=== PATIENT | female | born 1990 | race Caucasian/White ===

== ENCOUNTER 2018-09-24 11:02 | Emergency (ER) | payer OTHER ==
[2018-09-24 11:56] VITALS: BP 143/85
--- NOTE | 2018-09-24 12:16 | UC ---
Skin Complaint HPI - HPI Summary HPI Summary: Patient is 2 weeks . Patient developed what she thinks was a bite on her left forearm. Patient states over the last 2 days is gotten bigger and more red. Patient is a skilled nursing concern for cellulitis. 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 Patient's tetanus is up-to-date. Patient denies fevers or chills. No joint pain. No other injuries. Patient is right-hand dominant. Patient's medications reviewed this visit. Of note, patient is breast-feeding. - History of Current Complaint Chief Complaint: UCSkin Time Seen by Provider: 09/24/18 12:02 Stated Complaint: SPIDER BITE LT ARM Hx Obtained From: Patient Hx Last Menstrual Period: prior to childbirth. Pain Intensity: 7 - Allergy/Home Medications Allergies/Adverse Reactions: Allergies Allergy/AdvReac Type Severity Reaction Status Date / Time cephalexin [From Keflex] Allergy See Comment Verified 09/24/18 11:49 Home Medications: Home Medications Ibuprofen TAB* [Advil TAB*] 800 mg PO Q6H PRN 09/24/18 [History Confirmed ] Labetalol TAB* [Trandate TAB*] 200 mg PO BID 09/24/18 [History Confirmed ] Review of Systems All Other Systems Reviewed And Are Negative: Yes Constitutional: Positive: Negative Skin: Positive: Other Is Patient Immunocompromised?: No PMH/Surg Hx/FS Hx/Imm Hx Previously Healthy: Yes - Surgical History Surgical History: Yes Surgery Procedure, Year, and Place: R ovary torsion. cuauhtemoc - Family History Known Family History: Positive: Non-Contributory - Social History Occupation: Unemployed Lives: With Family Alcohol Use: None Substance Use Type: None Smoking Status (MU): Never Smoked Tobacco Physical Exam - Summary Physical Exam Summary: Vital Signs Reviewed: Yes A+Ox3, no distress Eyes: Conjunctiva Clear ENT: Hearing grossly normal neck: supple Respiratory: Positive: No respiratory distress, No accessory muscle use Cardiovascular: skin color reflect adequate perfusion Musculoskeletal Exam: CORNELL x 4 without difficulty Neurological: Positive: Alert, ambulatory without difficulty Psychological: Positive: Normal Response To Family Skin: Positive: left forearm pt with 1x2 cm area of raised firm erythema. no fluctuance. no induration. Surrounding pale erythema 3x4cm no open wound,no drainage Triage Information Reviewed: Yes Vital Signs: Initial Vital Signs Temp 98 F 09/24/18 11:50 Pulse 72 09/24/18 11:50 Resp 15 09/24/18 11:50 BP 143/85 09/24/18 11:50 Pulse Ox 100 09/24/18 11:50 Course/Dx - Course Course Of Treatment: Pt with an area of erythema left medial forearm with central area of firmenss, no notedflcutuance no drainage no crepitus. Pt declined I+D today. recommend warm soaking, demarcated. spoke with PCC regarding MRSA abx - given recommendations will use clinda. pt to breast feed immediately before med. reviewed with pt s/s worsening infection. splint for comfort and support. pt comfortable and in agreement with plan. BP mildly elevated- pt without sx - f.uy with PCP - Diagnoses Provider Diagnoses: cellulitis Discharge - Sign-Out/Discharge Documenting (check all that apply): Patient Departure All imaging exams completed and their final reports reviewed: No Studies - Discharge Plan Condition: Stable Disposition: HOME Prescriptions: Clindamycin Cap(NF) [Clindamycin Cap 300 mg Cap(NF)] 300 mg PO TID #21 cap Patient Education Materials: Cellulitis (ED) Referrals: No Primary Care Phys,NOPCP [Primary Care Provider] - Additional Instructions: Apply warm, epsom salt soaks to your wound, 3 times a day, 15 minutes per time wear wrist immobilizer for comfort and support monitor your wound closely for signs of worsening infection - increased reddness , red streaking, pain, drainage. As discussed today, you may need your wound opened and drained if your symptoms don't rapidly improved As discussed, it is recommended you breast feed immediately before taking the antibiotic If you have any questions or concerns you should return here or go to the emergency department for further evaluation and treatment - Billing Disposition and Condition Condition: STABLE Disposition: Home
--- NOTE | 2018-09-24 12:21 | UC ---
Skin Complaint HPI - History of Current Complaint Chief Complaint: UCSkin Time Seen by Provider: 09/24/18 12:02 Stated Complaint: SPIDER BITE LT ARM Hx Last Menstrual Period: prior to childbirth. Pain Intensity: 7 - Allergy/Home Medications Allergies/Adverse Reactions: Allergies Allergy/AdvReac Type Severity Reaction Status Date / Time cephalexin [From Keflex] Allergy See Comment Verified 09/24/18 11:49 Home Medications: Home Medications Ibuprofen TAB* [Advil TAB*] 800 mg PO Q6H PRN 09/24/18 [History Confirmed ] Labetalol TAB* [Trandate TAB*] 200 mg PO BID 09/24/18 [History Confirmed ] PMH/Surg Hx/FS Hx/Imm Hx - Surgical History Surgical History: Yes Surgery Procedure, Year, and Place: R ovary torsion. cuauhtemoc - Social History Alcohol Use: None Substance Use Type: None Smoking Status (MU): Never Smoked Tobacco Physical Exam Vital Signs: Initial Vital Signs Temp 98 F 09/24/18 11:50 Pulse 72 09/24/18 11:50 Resp 15 09/24/18 11:50 BP 143/85 09/24/18 11:50 Pulse Ox 100 09/24/18 11:50 Discharge - Discharge Plan Condition: Stable Disposition: HOME Patient Education Materials: Cellulitis (ED) Referrals: No Primary Care Phys,NOPCP [Primary Care Provider] - Additional Instructions: Apply warm, epsom salt soaks to your wound, 3 times a day, 15 minutes per time wear wrist immobilizer for comfort and support monitor your wound closely for signs of worsening infection - increased reddness , red streaking, pain, drainage. As discussed today, you may need your wound opened and drained if your symptoms don't rapidly improved If you have any questions or concerns you should return here or go to the emergency department for futher evaluation and treatment - Billing Disposition and Condition Condition: STABLE Disposition: Home
== END 2018-09-24 12:35 | disposition home or self-care (01) ==
LOC: UCCORT 11:02
DX: O99.73 Diseases of the skin and subcutaneous tissue complicating the puerperium (principal); L03.114 Cellulitis of left upper limb; Z88.1 Allergy status to other antibiotic agents
CPT/HCPCS: 99203; G0463